=== PATIENT | female | born 1970 | race Caucasian/White ===

== ENCOUNTER → 2016-11-11 | Outpatient (CLI) | payer MEDICAID ==
--- NOTE | 2016-11-11 11:04 | DI ---
Indication: ITS.REASON: M54.16 RADICULOPATHY PROCEDURE: MRI LUMBAR SPINE W/O CONTRAST: Encounter: Initial Comparison: None Technique: Multiplanar multisequence MR imaging of the lumbar spine was performed without contrast. Findings: Alignment of the lumbar spine is within normal limits. No acute fracture or subluxation seen. Conus medullaris terminates normally at L1. Bone marrow signal intensity is normal. Paraspinal soft tissues are unremarkable. Segmental analysis: L1-L2: Normal L2-L3: Normal L3-L4: Normal L4-L5: Normal L5-S1: Normal Impression: Negative exam. No focal disk herniation, central canal or neural foraminal stenosis. .
== END ==
LOC: IMA 09:23
PROVIDERS: ATTEND Family Medicine
DX: M54.16 Radiculopathy, lumbar region (principal)